=== PATIENT | male | born 1975 | race Caucasian/White ===

== ENCOUNTER 2021-06-02 22:28 | Emergency (ER) | payer OTHER ==
[~2021-06-02] VITALS: Ht 177.8 cm; Wt 123.1 kg
[2021-06-02] MEDS ORDERED: LISI20TA18 PO (22:46)
[2021-06-02] MEDS ORDERED: DIVA-53 PO (22:46)
[2021-06-02] MEDS ORDERED: BUPR300T92 PO (22:46)
[2021-06-02] MEDS ORDERED: HYDR12.58 PO (22:46)
[2021-06-02] MEDS ORDERED: one a day vitamin (22:46)
[2021-06-02] MEDS ORDERED: RIVA10TA PO (22:46)
[2021-06-02] MEDS ORDERED: LISI40TA6 PO (22:46)
--- NOTE | 2021-06-02 22:47 | PHYS DOC ---
Adult General Chief Complaint Chief Complaint: ALCOHOL INTOXICATION HPI HPI Patient is a 46-year-old male who presents after drinking too much whiskey today on [employer]. States he started about 4 PM has been drinking whiskey since. States he drank so much that he passed out and threw up. Denies any other drug use outside of tobacco. Denies alcoholism, recent traumas, illnesses, fevers, chest pain, shortness of breath, abdominal pain, history of pancreatitis or gallbladder disease. Review of Systems Review of Systems Review of systems otherwise unremarkable except noted in HPI Allergies Allergies Allergies Coded Allergies Type Severity Reaction Last Updated Verified No Known Drug Allergies 06/02/21 No Physical Exam Physical Exam Constitutional: Well developed, well nourished, no acute distress, non-toxic appearance. [] HENT: Normocephalic, atraumatic, bilateral external ears normal, oropharynx moist, no oral exudates, nose normal. [] Eyes: conjunctiva normal, no discharge. [] Neck: Normal range of motion, no tenderness, supple, no stridor. [] Cardiovascular:Heart rate regular rhythm, no murmur [] Lungs & Thorax: Bilateral breath sounds clear to auscultation [] Abdomen: Bowel sounds normal, soft, no tenderness, no masses, no pulsatile masses. [] Skin: Warm, dry, no erythema, no rash. [] Back: No tenderness, no CVA tenderness. [] Extremities: No tenderness, no cyanosis, no clubbing, ROM intact, no edema. [] Neurologic: Alert and oriented X 3, normal motor function, normal sensory function, no focal deficits noted. [] Psychologic: Affect normal, judgement normal, mood normal. [] EKG EKG [] Radiology/Procedures Radiology/Procedures [] Heart Score C/O Chest Pain: No Risk Factors: Risk Factors: DM, Current or recent (<one month) smoker, HTN, HLP, family history of CAD, obesity. Risk Scores: Risk Factors: DM, Current or recent (<one month) smoker, HTN, HLP, family history of CAD, obesity. Course & Med Decision Making Course & Med Decision Making Patient is a 46-year-old male who presents after drinking too much whiskey today with nausea and vomiting Vital signs not concerning. Physical exam noted above. Patient placed on the monitor with IV access established and IV fluid begun. Given antiemetics. On reassessment patient with was awake and asking for something to drink. Given Dr. Bliss which he tolerated. Discussed all findings with family. Discussed appropriate alcohol use. Advised to follow-up with primary care as needed. Gave return precautions to the ED. Family grateful, verbalized understanding and agreed with plan of discharge. discharged with . Dragon Disclaimer Dragon Disclaimer This electronic medical record was generated, in whole or in part, using a voice recognition dictation system. Departure Departure: Impression: Primary Impression: Alcohol intoxication Disposition: HOME / SELF CARE / HOMELESS Condition: GOOD Referrals: BRENDON PULIDO MD Patient Instructions: Alcohol Intoxication Additional Instructions: Thank for coming into the emergency department tonight and allowing us to take care of you. Please read the attached information carefully to go over things we discussed. Please try not to drink more than 1 alcoholic drink an hour and drink plenty of fluids in between. Please try not to drink more than 2 alcoholic drinks a day or 14 in a week. As you can see, if you go over these things cause significant illnesses. PAT APONTE MD Jun 02, 2021 22:47
[2021-06-02] MEDS ORDERED: ONDANSETRON PF 4 MG/2 ML VIAL. ONE (22:49)
[2021-06-02] MEDS ORDERED: METOCLOPRAMIDE HCL 10 MG/2 ML VIAL. ONE (22:49)
[2021-06-02] MEDS ORDERED: ONDANSETRON PF 4 MG/2 ML VIAL. IVP ONE (23:00)
[2021-06-02] MEDS ORDERED: IV RINGERS SOLUTION,LACTATED 1,000 ML IV ONE (23:00)
[2021-06-02] MEDS ORDERED: METOCLOPRAMIDE HCL 10 MG/2 ML VIAL. IVP ONE (23:00)
[2021-06-03 00:30] VITALS: BP 126/88
== END 2021-06-03 00:45 | disposition home or self-care (01) ==
LOC: ER 22:28
DX: F10.129 Alcohol abuse with intoxication, unspecified (principal); Y90.9 Presence of alcohol in blood, level not specified
CPT/HCPCS: 96361; 96374; 96375; 99284; J2405; J2765; J7120